=== PATIENT | male | born 1940 | race Caucasian/White ===

== ENCOUNTER 2017-01-29 08:44 | Inpatient (IN) | payer MEDICARE, MEDICAID ==
[~2017-01-29 08:44] MED LIST: ADULT LOW DOSE81 M1 PO; ALLOPURINOL100 MG; AMOX-CLAV 500-1 EACH; ATORVASTATIN CA10 M1 PO; BAYER CHEWABLE81 M2 PO; CALCIUM CARBON650 MG; CARDIZEM CD180 M1 PO; CEPHALEXIN500 M1 PO; CIPRO500 M2 PO; CIPRO500 MG/51 PO; CITRATE OF MAG300 M1 PO; CLINDAMYCIN HC300 M2 PO; CLOPIDOGREL75 M1 PO; COUMADIN10 MG; COUMADIN2.5 M1 PO; COUMADIN3 M1 PO; COUMADIN5 M2 PO; COUMADIN7.5 M1 PO; CULTURELLE1 EAC1 PO; CULTURELLE1 EAC2 PO; DOCUSATE; FERROUS SULFAT325 MG PO; FLOMAX0.4 M1 PO; FUROSEMIDE20 M1 PO; GLUCAGEN1 MG/1 ML IM; HYDROCHLOROTHIA25 M1 PO; HYDROCODON-ACE1 EA17 PO; IRON325 M3 PO; K-TAB ER10 MEQ PO; K-TAB ER20 ME1 PO; KEFLEX250 M2 PO; LASIX40 M1 PO; LIDOCAINE5 GM TOP; LIPITOR10 MG; LORTAB 5-325 M1 EAC1 PO; LOVENOX150 MG/1 M SC; MAGNESIUM OXID400 M1 PO; MERREM500 MG IV; METOLAZONE5 M1 PO; METOPROLOL SUC100 M1 PO; MILK OF MAGNESIA PO; MIRALAX17 G2 PO; MYCOPHENOLIC A360 M1 PO; NEURONTIN100 M1 PO; NORCO 5-325 TA1 EACH PO; NORVASC5 M2 PO; NOVOLOG100 UNITS/ SC; OMEPRAZOLE20 M3 PO; OXYCODONE HCL5 M1 PO; POTASSIUM CHLO10 ME1 PO; POTASSIUM CHLO20 ME3 PO; PROGRAF0.5 M1 PO; PROGRAF1 M1 PO; RAPAMUNE1 M1 PO; ROCALTROL0.25 MC1 PO; ROCALTROL0.5 MC2 PO; SANTYL30 G1 TD; SENEXON-S TABL1 EAC1 PO; SENNA8.6 M2 PO; SILVADENE20 G1 TD; SILVADENE20 G1 TOP; SIROLIMUS PO; SIROLIMUS0.5 MG PO; SULFAMYLON60 GM TOP; VANCO 1.751.75 GM/25 IV; VANCOMYCIN750 MG/250 IV; VENELEX OINTMEN60 GM TP; ZYLOPRIM100 M1 PO
[2017-01-29 16:34] LABS: BASO % 0.3 % (0-2); EOS % 1.7 % (0-7); EOSINOPHIL ABSOLUTE COUNT 0.2 tho/cmm (0.0-0.7); HCT-HEMATOCRIT 32.6 % (36.0-53.5); HGB-HEMOGLOBIN 10.2 gm/dl (13.5-17.0); IMMATURE GRANULOCYTES ABSOLUTE 0.01 tho/cmm (0-0.03); IMMATURE GRANULOCYTES PERCENT 0.1 % (0-0.3); LYMPH % 10.1 % (20-45); LYMPH ABSOLUTE COUNT 0.9 tho/cmm (0.8-4.5); MCH (MEAN CORPUSCULAR HGB) 22.9 pg (28.0-32.0); MCHC MEAN CORPUSCULAR HGB CONC 31.3 % (32.0-36.0); MCV (MEAN CELL VOLUME) 73.3 fl (82.0-96.0); MEAN PLATELET VOLUME 8.6 cmc (9.4-12.4); MONO % 3.4 % (0-12); MONOCYTE ABSOLUTE COUNT 0.3 tho/cmm (0.0-1.2); NEUTROPHIL ABSOLUTE COUNT 7.3 tho/cmm (1.6-8.0); NEUTROPHIL-AUTOMATED 7.3 tho/cmm (1.6-8.0); NEUTROPHILS % 84.4 % (40-80); PLATELET COUNT 344 tho/cmm (150-450); RED BLOOD COUNT 4.45 mil/cmm (4.40-5.70); RED CELL DISTRIBUTION WIDTH 18.3 % (12.4-16.4); WHITE BLOOD COUNT 8.7 tho/cmm (4.0-10.0)
[2017-01-29 16:35] LABS: INR 1.7 INR (0.9-1.1); PROTHROMBIN TIME 20.3 SECONDS (9.0-13.6)
[2017-01-29 16:47] LABS: ALB/GLOB RATIO 0.7 (0.8-2.0); ALBUMIN 3.1 g/dl (3.5-5.0); ALKALINE PHOSPHATASE 69 U/L (33-138); ALT/SGPT 14 U/L (12-78); ANION GAP 14 mmol/L (0-20); AST/SGOT 14 U/L (10-40); BILIRUBIN,TOTAL 0.4 mg/dl (0.0-1.5); BLOOD UREA NITROGEN 41 mg/dl (6-24); CALCIUM 8.2 mg/dl (8.5-10.5); CARBON DIOXIDE-VENOUS 28 mmol/L (22-32); CHLORIDE 102 mmol/l (96-110); CREATININE 1.35 mg/dl (0.60-1.30); GLUCOSE 114 mg/dL (70-110); POTASSIUM 4.8 mmol/L (3.7-5.1); PREALBUMIN 14.4 mg/dl (20.0-40.0); SODIUM 139 mmol/L (135-145); eGFR VALUE FOR BLACK 58 mL/Min
[2017-01-29] MEDS ORDERED: BISCOLAX10 MG PR (16:48)
[2017-01-29] MEDS ORDERED: ENEMA133 M4 PR (16:49)
[2017-01-30 06:11] LABS: BASO % 0.3 % (0-2); EOS % 1.1 % (0-7); EOSINOPHIL ABSOLUTE COUNT 0.1 tho/cmm (0.0-0.7); HCT-HEMATOCRIT 30.5 % (36.0-53.5); HGB-HEMOGLOBIN 9.4 gm/dl (13.5-17.0); IMMATURE GRANULOCYTES ABSOLUTE 0.02 tho/cmm (0-0.03); IMMATURE GRANULOCYTES PERCENT 0.3 % (0-0.3); LYMPH % 10.5 % (20-45); LYMPH ABSOLUTE COUNT 0.8 tho/cmm (0.8-4.5); MCH (MEAN CORPUSCULAR HGB) 22.5 pg (28.0-32.0); MCHC MEAN CORPUSCULAR HGB CONC 30.8 % (32.0-36.0); MCV (MEAN CELL VOLUME) 73.1 fl (82.0-96.0); MEAN PLATELET VOLUME 8.8 cmc (9.4-12.4); MONO % 6.8 % (0-12); MONOCYTE ABSOLUTE COUNT 0.5 tho/cmm (0.0-1.2); NEUTROPHIL ABSOLUTE COUNT 6.5 tho/cmm (1.6-8.0); NEUTROPHIL-AUTOMATED 6.5 tho/cmm (1.6-8.0); PLATELET COUNT 350 tho/cmm (150-450); RED BLOOD COUNT 4.17 mil/cmm (4.40-5.70); RED CELL DISTRIBUTION WIDTH 18.3 % (12.4-16.4)
[2017-01-30 06:22] LABS: ANION GAP 14 mmol/L (0-20); BLOOD UREA NITROGEN 38 mg/dl (6-24); CALCIUM 7.9 mg/dl (8.5-10.5); CARBON DIOXIDE-VENOUS 26 mmol/L (22-32); CHLORIDE 104 mmol/l (96-110); CREATININE 1.34 mg/dl (0.60-1.30); GLUCOSE 103 mg/dL (70-110); POTASSIUM 4.7 mmol/L (3.7-5.1); SODIUM 139 mmol/L (135-145); eGFR VALUE FOR BLACK 59 mL/Min
[2017-01-30 20:08] LABS: URINE PRT/CR RATIO 0.28 Ratio (0.0-0.20); URINE TOTAL PROTEIN-RANDOM 19.1 mg/dl (<11.8)
[2017-01-31 06:21] LABS: BASO % 0.5 % (0-2); EOS % 2.6 % (0-7); EOSINOPHIL ABSOLUTE COUNT 0.2 tho/cmm (0.0-0.7); HCT-HEMATOCRIT 30.6 % (36.0-53.5); HGB-HEMOGLOBIN 9.3 gm/dl (13.5-17.0); IMMATURE GRANULOCYTES ABSOLUTE 0.01 tho/cmm (0-0.03); IMMATURE GRANULOCYTES PERCENT 0.1 % (0-0.3); LYMPH % 11.3 % (20-45); LYMPH ABSOLUTE COUNT 0.9 tho/cmm (0.8-4.5); MCH (MEAN CORPUSCULAR HGB) 22.2 pg (28.0-32.0); MCHC MEAN CORPUSCULAR HGB CONC 30.4 % (32.0-36.0); MEAN PLATELET VOLUME 8.6 cmc (9.4-12.4); MONO % 7.1 % (0-12); MONOCYTE ABSOLUTE COUNT 0.6 tho/cmm (0.0-1.2); NEUTROPHIL ABSOLUTE COUNT 6.5 tho/cmm (1.6-8.0); NEUTROPHIL-AUTOMATED 6.5 tho/cmm (1.6-8.0); NEUTROPHILS % 78.4 % (40-80); PLATELET COUNT 332 tho/cmm (150-450); RED BLOOD COUNT 4.19 mil/cmm (4.40-5.70); RED CELL DISTRIBUTION WIDTH 18.2 % (12.4-16.4); WHITE BLOOD COUNT 8.3 tho/cmm (4.0-10.0)
[2017-01-31 06:22] LABS: INR 1.8 INR (0.9-1.1); PROTHROMBIN TIME 20.9 SECONDS (9.0-13.6)
[2017-01-31 06:33] LABS: ANION GAP 12 mmol/L (0-20); BLOOD UREA NITROGEN 38 mg/dl (6-24); CALCIUM 7.9 mg/dl (8.5-10.5); CARBON DIOXIDE-VENOUS 27 mmol/L (22-32); CHLORIDE 104 mmol/l (96-110); CREATININE 1.61 mg/dl (0.60-1.30); GLUCOSE 106 mg/dL (70-110); SODIUM 140 mmol/L (135-145); eGFR VALUE FOR BLACK 47 mL/Min
[2017-01-31 06:39] LABS: POTASSIUM 3.4 mmol/L (3.7-5.1)
[2017-02-01 04:36] LABS: BASO % 0.5 % (0-2); EOS % 2.2 % (0-7); EOSINOPHIL ABSOLUTE COUNT 0.2 tho/cmm (0.0-0.7); HCT-HEMATOCRIT 30.6 % (36.0-53.5); HGB-HEMOGLOBIN 9.4 gm/dl (13.5-17.0); IMMATURE GRANULOCYTES ABSOLUTE 0.02 tho/cmm (0-0.03); IMMATURE GRANULOCYTES PERCENT 0.3 % (0-0.3); LYMPH ABSOLUTE COUNT 0.8 tho/cmm (0.8-4.5); MCH (MEAN CORPUSCULAR HGB) 22.4 pg (28.0-32.0); MCHC MEAN CORPUSCULAR HGB CONC 30.7 % (32.0-36.0); MEAN PLATELET VOLUME 8.4 cmc (9.4-12.4); MONO % 4.7 % (0-12); MONOCYTE ABSOLUTE COUNT 0.4 tho/cmm (0.0-1.2); NEUTROPHIL ABSOLUTE COUNT 6.3 tho/cmm (1.6-8.0); NEUTROPHIL-AUTOMATED 6.3 tho/cmm (1.6-8.0); NEUTROPHILS % 82.3 % (40-80); PLATELET COUNT 325 tho/cmm (150-450); RED BLOOD COUNT 4.19 mil/cmm (4.40-5.70); RED CELL DISTRIBUTION WIDTH 18.2 % (12.4-16.4); WHITE BLOOD COUNT 7.6 tho/cmm (4.0-10.0)
[2017-02-01 04:40] LABS: INR 1.8 INR (0.9-1.1); PROTHROMBIN TIME 21.2 SECONDS (9.0-13.6)
[2017-02-01 04:49] LABS: ALBUMIN 3.1 g/dl (3.5-5.0); ANION GAP 12 mmol/L (0-20); BLOOD UREA NITROGEN 38 mg/dl (6-24); CALCIUM 7.9 mg/dl (8.5-10.5); CARBON DIOXIDE-VENOUS 31 mmol/L (22-32); CHLORIDE 103 mmol/l (96-110); CREATININE 1.71 mg/dl (0.60-1.30); GLUCOSE 109 mg/dL (70-110); PHOSPHOROUS 5.1 mg/dl (2.5-4.9); SODIUM 143 mmol/L (135-145); eGFR VALUE FOR BLACK 44 mL/Min
[2017-02-01 04:56] LABS: POTASSIUM 2.7 mmol/L (3.7-5.1)
[2017-02-01 10:46] LABS: ANION GAP 12 mmol/L (0-20); BLOOD UREA NITROGEN 37 mg/dl (6-24); CARBON DIOXIDE-VENOUS 32 mmol/L (22-32); CHLORIDE 102 mmol/l (96-110); CREATININE 1.79 mg/dl (0.60-1.30); GLUCOSE 96 mg/dL (70-110); SODIUM 143 mmol/L (135-145); eGFR VALUE FOR BLACK 41 mL/Min
[2017-02-01 10:49] LABS: POTASSIUM 2.9 mmol/L (3.7-5.1)
[2017-02-01 13:51] LABS: BLOOD UREA NITROGEN 38 mg/dl (6-24); CALCIUM 8.3 mg/dl (8.5-10.5); CARBON DIOXIDE-VENOUS 32 mmol/L (22-32); CHLORIDE 100 mmol/l (96-110); SODIUM 142 mmol/L (135-145); eGFR VALUE FOR BLACK 41 mL/Min
[2017-02-01 13:57] LABS: ANION GAP 13 mmol/L (0-20); GLUCOSE 145 mg/dL (70-110)
[2017-02-01 13:58] LABS: POTASSIUM 2.8 mmol/L (3.7-5.1)
[2017-02-01 17:17] LABS: ANION GAP 14 mmol/L (0-20); BLOOD UREA NITROGEN 37 mg/dl (6-24); CARBON DIOXIDE-VENOUS 30 mmol/L (22-32); CHLORIDE 101 mmol/l (96-110); CREATININE 1.69 mg/dl (0.60-1.30); GLUCOSE 134 mg/dL (70-110); SODIUM 142 mmol/L (135-145); eGFR VALUE FOR BLACK 44 mL/Min
[2017-02-01 17:18] LABS: POTASSIUM 2.9 mmol/L (3.7-5.1)
[2017-02-02 02:24] LABS: INR 1.6 INR (0.9-1.1); PROTHROMBIN TIME 18.5 SECONDS (9.0-13.6)
[2017-02-02 02:25] LABS: BASO % 0.3 % (0-2); EOS % 1.9 % (0-7); EOSINOPHIL ABSOLUTE COUNT 0.1 tho/cmm (0.0-0.7); HGB-HEMOGLOBIN 8.7 gm/dl (13.5-17.0); IMMATURE GRANULOCYTES ABSOLUTE 0.01 tho/cmm (0-0.03); IMMATURE GRANULOCYTES PERCENT 0.1 % (0-0.3); LYMPH % 11.4 % (20-45); LYMPH ABSOLUTE COUNT 0.8 tho/cmm (0.8-4.5); MCH (MEAN CORPUSCULAR HGB) 22.4 pg (28.0-32.0); MCHC MEAN CORPUSCULAR HGB CONC 31.1 % (32.0-36.0); MEAN PLATELET VOLUME 8.4 cmc (9.4-12.4); MONO % 7.2 % (0-12); MONOCYTE ABSOLUTE COUNT 0.5 tho/cmm (0.0-1.2); NEUTROPHIL ABSOLUTE COUNT 5.5 tho/cmm (1.6-8.0); NEUTROPHIL-AUTOMATED 5.5 tho/cmm (1.6-8.0); NEUTROPHILS % 79.1 % (40-80); PLATELET COUNT 309 tho/cmm (150-450); RED BLOOD COUNT 3.89 mil/cmm (4.40-5.70); RED CELL DISTRIBUTION WIDTH 18.1 % (12.4-16.4); WHITE BLOOD COUNT 6.9 tho/cmm (4.0-10.0)
[2017-02-02 02:31] LABS: ALBUMIN 3.3 g/dl (3.5-5.0); ANION GAP 14 mmol/L (0-20); BLOOD UREA NITROGEN 36 mg/dl (6-24); CALCIUM 7.7 mg/dl (8.5-10.5); CARBON DIOXIDE-VENOUS 29 mmol/L (22-32); CHLORIDE 104 mmol/l (96-110); CREATININE 1.73 mg/dl (0.60-1.30); GLUCOSE 113 mg/dL (70-110); PHOSPHOROUS 4.3 mg/dl (2.5-4.9); POTASSIUM 3.2 mmol/L (3.7-5.1); SODIUM 144 mmol/L (135-145); eGFR VALUE FOR BLACK 43 mL/Min
[2017-02-03 05:24] LABS: BASO % 0.5 % (0-2); EOS % 1.3 % (0-7); EOSINOPHIL ABSOLUTE COUNT 0.1 tho/cmm (0.0-0.7); HCT-HEMATOCRIT 28.2 % (36.0-53.5); HGB-HEMOGLOBIN 8.4 gm/dl (13.5-17.0); IMMATURE GRANULOCYTES ABSOLUTE 0.01 tho/cmm (0-0.03); IMMATURE GRANULOCYTES PERCENT 0.1 % (0-0.3); LYMPH % 9.5 % (20-45); LYMPH ABSOLUTE COUNT 0.7 tho/cmm (0.8-4.5); MCH (MEAN CORPUSCULAR HGB) 21.9 pg (28.0-32.0); MCHC MEAN CORPUSCULAR HGB CONC 29.8 % (32.0-36.0); MCV (MEAN CELL VOLUME) 73.6 fl (82.0-96.0); MEAN PLATELET VOLUME 7.9 cmc (9.4-12.4); MONO % 4.5 % (0-12); MONOCYTE ABSOLUTE COUNT 0.4 tho/cmm (0.0-1.2); NEUTROPHIL ABSOLUTE COUNT 6.6 tho/cmm (1.6-8.0); NEUTROPHIL-AUTOMATED 6.6 tho/cmm (1.6-8.0); NEUTROPHILS % 84.1 % (40-80); PLATELET COUNT 285 tho/cmm (150-450); RED BLOOD COUNT 3.83 mil/cmm (4.40-5.70); RED CELL DISTRIBUTION WIDTH 18.3 % (12.4-16.4); WHITE BLOOD COUNT 7.8 tho/cmm (4.0-10.0)
[2017-02-03 05:30] LABS: INR 1.6 INR (0.9-1.1); PROTHROMBIN TIME 19.4 SECONDS (9.0-13.6)
[2017-02-03 05:37] LABS: ALBUMIN 3.2 g/dl (3.5-5.0); ANION GAP 16 mmol/L (0-20); BLOOD UREA NITROGEN 33 mg/dl (6-24); CALCIUM 7.6 mg/dl (8.5-10.5); CARBON DIOXIDE-VENOUS 29 mmol/L (22-32); CHLORIDE 101 mmol/l (96-110); CREATININE 1.67 mg/dl (0.60-1.30); GLUCOSE 164 mg/dL (70-110); MAGNESIUM 1.8 mg/dl (1.8-2.6); PHOSPHOROUS 4.4 mg/dl (2.5-4.9); POTASSIUM 3.4 mmol/L (3.7-5.1); SODIUM 143 mmol/L (135-145); eGFR VALUE FOR BLACK 45 mL/Min
[2017-02-04 05:32] LABS: BASO % 0.2 % (0-2); EOS % 0.7 % (0-7); EOSINOPHIL ABSOLUTE COUNT 0.1 tho/cmm (0.0-0.7); HCT-HEMATOCRIT 27.7 % (36.0-53.5); HGB-HEMOGLOBIN 8.3 gm/dl (13.5-17.0); IMMATURE GRANULOCYTES ABSOLUTE 0.01 tho/cmm (0-0.03); IMMATURE GRANULOCYTES PERCENT 0.1 % (0-0.3); LYMPH % 8.7 % (20-45); LYMPH ABSOLUTE COUNT 0.9 tho/cmm (0.8-4.5); MCV (MEAN CELL VOLUME) 73.3 fl (82.0-96.0); MEAN PLATELET VOLUME 8.5 cmc (9.4-12.4); MONO % 4.5 % (0-12); MONOCYTE ABSOLUTE COUNT 0.5 tho/cmm (0.0-1.2); NEUTROPHIL ABSOLUTE COUNT 8.6 tho/cmm (1.6-8.0); NEUTROPHIL-AUTOMATED 8.6 tho/cmm (1.6-8.0); NEUTROPHILS % 85.8 % (40-80); PLATELET COUNT 341 tho/cmm (150-450); RED BLOOD COUNT 3.78 mil/cmm (4.40-5.70); RED CELL DISTRIBUTION WIDTH 18.4 % (12.4-16.4)
[2017-02-04 05:37] LABS: INR 1.6 INR (0.9-1.1); PROTHROMBIN TIME 19.4 SECONDS (9.0-13.6)
[2017-02-04 05:46] LABS: ANION GAP 12 mmol/L (0-20); BLOOD UREA NITROGEN 39 mg/dl (6-24); CALCIUM 7.6 mg/dl (8.5-10.5); CARBON DIOXIDE-VENOUS 30 mmol/L (22-32); CHLORIDE 106 mmol/l (96-110); CREATININE 1.56 mg/dl (0.60-1.30); GLUCOSE 127 mg/dL (70-110); POTASSIUM 3.8 mmol/L (3.7-5.1); SODIUM 144 mmol/L (135-145); eGFR VALUE FOR BLACK 49 mL/Min
[2017-02-05 05:58] LABS: ALBUMIN 2.8 g/dl (3.5-5.0); ANION GAP 12 mmol/L (0-20); BLOOD UREA NITROGEN 34 mg/dl (6-24); CALCIUM 7.5 mg/dl (8.5-10.5); CARBON DIOXIDE-VENOUS 29 mmol/L (22-32); CHLORIDE 104 mmol/l (96-110); CREATININE 1.54 mg/dl (0.60-1.30); GLUCOSE 116 mg/dL (70-110); PHOSPHOROUS 3.6 mg/dl (2.5-4.9); POTASSIUM 3.4 mmol/L (3.7-5.1); SODIUM 142 mmol/L (135-145); eGFR VALUE FOR BLACK 50 mL/Min
[2017-02-05 06:02] LABS: TSH-THYROID STIMULATING HORM. 3.03 uIU/ml (0.40-3.80)
[2017-02-05 06:58] LABS: BASO % 0.4 % (0-2); EOSINOPHIL ABSOLUTE COUNT 0.2 tho/cmm (0.0-0.7); HCT-HEMATOCRIT 26.8 % (36.0-53.5); LYMPH % 5.7 % (20-45); LYMPH ABSOLUTE COUNT 0.6 tho/cmm (0.8-4.5); MCH (MEAN CORPUSCULAR HGB) 22.4 pg (28.0-32.0); MCHC MEAN CORPUSCULAR HGB CONC 29.9 % (32.0-36.0); MCV (MEAN CELL VOLUME) 75.1 fl (82.0-96.0); MEAN PLATELET VOLUME 9.2 cmc (9.4-12.4); MONO % 7.7 % (0-12); MONOCYTE ABSOLUTE COUNT 0.7 tho/cmm (0.0-1.2); NEUTROPHIL ABSOLUTE COUNT 8.1 tho/cmm (1.6-8.0); NEUTROPHIL-AUTOMATED 8.1 tho/cmm (1.6-8.0); NEUTROPHILS % 84.2 % (40-80); PLATELET COUNT 387 tho/cmm (150-450); RED BLOOD COUNT 3.57 mil/cmm (4.40-5.70); RED CELL DISTRIBUTION WIDTH 18.5 % (12.4-16.4); WHITE BLOOD COUNT 9.6 tho/cmm (4.0-10.0)
[2017-02-05 07:39] LABS: INR 2.1 INR (0.9-1.1); PROTHROMBIN TIME 24.4 SECONDS (9.0-13.6)
[2017-02-05 19:35] LABS: PROTHROMBIN TIME 23.4 SECONDS (9.0-13.6)
[2017-02-06 05:35] LABS: BASO % 0.4 % (0-2); EOS % 2.9 % (0-7); EOSINOPHIL ABSOLUTE COUNT 0.3 tho/cmm (0.0-0.7); HCT-HEMATOCRIT 25.7 % (36.0-53.5); HGB-HEMOGLOBIN 7.8 gm/dl (13.5-17.0); IMMATURE GRANULOCYTES ABSOLUTE 0.02 tho/cmm (0-0.03); IMMATURE GRANULOCYTES PERCENT 0.2 % (0-0.3); LYMPH % 6.6 % (20-45); LYMPH ABSOLUTE COUNT 0.6 tho/cmm (0.8-4.5); MCH (MEAN CORPUSCULAR HGB) 22.2 pg (28.0-32.0); MCHC MEAN CORPUSCULAR HGB CONC 30.4 % (32.0-36.0); MEAN PLATELET VOLUME 8.5 cmc (9.4-12.4); MONO % 9.3 % (0-12); MONOCYTE ABSOLUTE COUNT 0.8 tho/cmm (0.0-1.2); NEUTROPHIL ABSOLUTE COUNT 6.9 tho/cmm (1.6-8.0); NEUTROPHIL-AUTOMATED 6.9 tho/cmm (1.6-8.0); NEUTROPHILS % 80.6 % (40-80); PLATELET COUNT 344 tho/cmm (150-450); RED BLOOD COUNT 3.52 mil/cmm (4.40-5.70); RED CELL DISTRIBUTION WIDTH 18.5 % (12.4-16.4); WHITE BLOOD COUNT 8.5 tho/cmm (4.0-10.0)
[2017-02-06 05:37] LABS: INR 1.8 INR (0.9-1.1); PROTHROMBIN TIME 21.8 SECONDS (9.0-13.6)
[2017-02-06 05:53] LABS: CHLORIDE 106 mmol/l (96-110); POTASSIUM 3.4 mmol/L (3.7-5.1); SODIUM 145 mmol/L (135-145)
[2017-02-06 06:02] LABS: IRON 17 ug/dl (49-181); IRON BINDING CAPACITY 168 ug/dl (250-450)
[2017-02-06 07:14] LABS: ANION GAP 15 mmol/L (0-20); BLOOD UREA NITROGEN 29 mg/dl (6-24); CALCIUM 7.8 mg/dl (8.5-10.5); CARBON DIOXIDE-VENOUS 27 mmol/L (22-32); CREATININE 1.43 mg/dl (0.60-1.30); GLUCOSE 116 mg/dL (70-110); eGFR VALUE FOR BLACK 54 mL/Min
[2017-02-06 14:29] LABS: BASO % 0.3 % (0-2); EOS % 1.9 % (0-7); EOSINOPHIL ABSOLUTE COUNT 0.2 tho/cmm (0.0-0.7); HCT-HEMATOCRIT 25.3 % (36.0-53.5); HGB-HEMOGLOBIN 7.8 gm/dl (13.5-17.0); IMMATURE GRANULOCYTES ABSOLUTE 0.02 tho/cmm (0-0.03); IMMATURE GRANULOCYTES PERCENT 0.2 % (0-0.3); LYMPH % 5.3 % (20-45); LYMPH ABSOLUTE COUNT 0.5 tho/cmm (0.8-4.5); MCH (MEAN CORPUSCULAR HGB) 22.9 pg (28.0-32.0); MCHC MEAN CORPUSCULAR HGB CONC 30.8 % (32.0-36.0); MCV (MEAN CELL VOLUME) 74.4 fl (82.0-96.0); MONO % 8.3 % (0-12); MONOCYTE ABSOLUTE COUNT 0.8 tho/cmm (0.0-1.2); NEUTROPHIL ABSOLUTE COUNT 7.6 tho/cmm (1.6-8.0); NEUTROPHIL-AUTOMATED 7.6 tho/cmm (1.6-8.0); PLATELET COUNT 300 tho/cmm (150-450); RED CELL DISTRIBUTION WIDTH 18.8 % (12.4-16.4); WHITE BLOOD COUNT 9.1 tho/cmm (4.0-10.0)
[2017-02-07 05:34] LABS: BASO % 0.3 % (0-2); EOS % 0.7 % (0-7); EOSINOPHIL ABSOLUTE COUNT 0.1 tho/cmm (0.0-0.7); HGB-HEMOGLOBIN 7.9 gm/dl (13.5-17.0); IMMATURE GRANULOCYTES ABSOLUTE 0.02 tho/cmm (0-0.03); IMMATURE GRANULOCYTES PERCENT 0.2 % (0-0.3); LYMPH % 6.5 % (20-45); LYMPH ABSOLUTE COUNT 0.8 tho/cmm (0.8-4.5); MCH (MEAN CORPUSCULAR HGB) 22.8 pg (28.0-32.0); MCHC MEAN CORPUSCULAR HGB CONC 30.4 % (32.0-36.0); MCV (MEAN CELL VOLUME) 75.1 fl (82.0-96.0); MEAN PLATELET VOLUME 8.1 cmc (9.4-12.4); MONO % 4.8 % (0-12); MONOCYTE ABSOLUTE COUNT 0.6 tho/cmm (0.0-1.2); NEUTROPHIL ABSOLUTE COUNT 10.2 tho/cmm (1.6-8.0); NEUTROPHIL-AUTOMATED 10.2 tho/cmm (1.6-8.0); NEUTROPHILS % 87.5 % (40-80); PLATELET COUNT 325 tho/cmm (150-450); RED BLOOD COUNT 3.46 mil/cmm (4.40-5.70); WHITE BLOOD COUNT 11.6 tho/cmm (4.0-10.0)
[2017-02-07 05:58] LABS: INR 1.3 INR (0.9-1.1)
[2017-02-07 06:17] LABS: ANION GAP 13 mmol/L (0-20); BLOOD UREA NITROGEN 23 mg/dl (6-24); CALCIUM 7.3 mg/dl (8.5-10.5); CARBON DIOXIDE-VENOUS 28 mmol/L (22-32); CHLORIDE 103 mmol/l (96-110); CREATININE 1.34 mg/dl (0.60-1.30); GLUCOSE 141 mg/dL (70-110); POTASSIUM 3.2 mmol/L (3.7-5.1); SODIUM 141 mmol/L (135-145); eGFR VALUE FOR BLACK 59 mL/Min
[2017-02-07 06:20] LABS: PROTHROMBIN TIME 14.8 SECONDS (9.0-13.6)
[2017-02-08 05:51] LABS: BASO % 0.2 % (0-2); EOSINOPHIL ABSOLUTE COUNT 0.1 tho/cmm (0.0-0.7); HCT-HEMATOCRIT 24.4 % (36.0-53.5); HGB-HEMOGLOBIN 7.3 gm/dl (13.5-17.0); IMMATURE GRANULOCYTES ABSOLUTE 0.01 tho/cmm (0-0.03); IMMATURE GRANULOCYTES PERCENT 0.1 % (0-0.3); LYMPH % 7.8 % (20-45); LYMPH ABSOLUTE COUNT 0.8 tho/cmm (0.8-4.5); MCH (MEAN CORPUSCULAR HGB) 22.7 pg (28.0-32.0); MCHC MEAN CORPUSCULAR HGB CONC 29.9 % (32.0-36.0); MEAN PLATELET VOLUME 8.4 cmc (9.4-12.4); MONO % 6.4 % (0-12); MONOCYTE ABSOLUTE COUNT 0.7 tho/cmm (0.0-1.2); NEUTROPHIL ABSOLUTE COUNT 8.8 tho/cmm (1.6-8.0); NEUTROPHIL-AUTOMATED 8.8 tho/cmm (1.6-8.0); NEUTROPHILS % 84.5 % (40-80); PLATELET COUNT 331 tho/cmm (150-450); RED BLOOD COUNT 3.21 mil/cmm (4.40-5.70); RED CELL DISTRIBUTION WIDTH 19.9 % (12.4-16.4); WHITE BLOOD COUNT 10.4 tho/cmm (4.0-10.0)
[2017-02-08 05:52] LABS: INR 1.2 INR (0.9-1.1); PROTHROMBIN TIME 14.4 SECONDS (9.0-13.6)
[2017-02-08 06:00] LABS: ALBUMIN 2.5 g/dl (3.5-5.0); ANION GAP 14 mmol/L (0-20); BLOOD UREA NITROGEN 22 mg/dl (6-24); CALCIUM 7.4 mg/dl (8.5-10.5); CARBON DIOXIDE-VENOUS 30 mmol/L (22-32); CHLORIDE 105 mmol/l (96-110); CREATININE 1.25 mg/dl (0.60-1.30); GLUCOSE 127 mg/dL (70-110); MAGNESIUM 1.9 mg/dl (1.8-2.6); PHOSPHOROUS 3.5 mg/dl (2.5-4.9); SODIUM 146 mmol/L (135-145); eGFR VALUE FOR BLACK 64 mL/Min
[2017-02-08 16:20] LABS: ANION GAP 13 mmol/L (0-20); BLOOD UREA NITROGEN 23 mg/dl (6-24); CALCIUM 7.7 mg/dl (8.5-10.5); CARBON DIOXIDE-VENOUS 27 mmol/L (22-32); CHLORIDE 107 mmol/l (96-110); CREATININE 1.36 mg/dl (0.60-1.30); GLUCOSE 119 mg/dL (70-110); SODIUM 143 mmol/L (135-145); eGFR VALUE FOR BLACK 58 mL/Min
[2017-02-08 16:29] LABS: POTASSIUM 4.2 mmol/L (3.7-5.1)
[2017-02-09 05:58] LABS: INR 1.3 INR (0.9-1.1); PROTHROMBIN TIME 14.8 SECONDS (9.0-13.6)
[2017-02-09 06:03] LABS: BASO % 0.2 % (0-2); EOS % 1.1 % (0-7); EOSINOPHIL ABSOLUTE COUNT 0.1 tho/cmm (0.0-0.7); HCT-HEMATOCRIT 24.3 % (36.0-53.5); HGB-HEMOGLOBIN 7.4 gm/dl (13.5-17.0); IMMATURE GRANULOCYTES ABSOLUTE 0.02 tho/cmm (0-0.03); IMMATURE GRANULOCYTES PERCENT 0.2 % (0-0.3); LYMPH % 4.3 % (20-45); LYMPH ABSOLUTE COUNT 0.4 tho/cmm (0.8-4.5); MCH (MEAN CORPUSCULAR HGB) 23.3 pg (28.0-32.0); MCHC MEAN CORPUSCULAR HGB CONC 30.5 % (32.0-36.0); MCV (MEAN CELL VOLUME) 76.7 fl (82.0-96.0); MEAN PLATELET VOLUME 8.6 cmc (9.4-12.4); MONO % 11.5 % (0-12); MONOCYTE ABSOLUTE COUNT 1.2 tho/cmm (0.0-1.2); NEUTROPHIL ABSOLUTE COUNT 8.3 tho/cmm (1.6-8.0); NEUTROPHIL-AUTOMATED 8.3 tho/cmm (1.6-8.0); NEUTROPHILS % 82.7 % (40-80); PLATELET COUNT 369 tho/cmm (150-450); RED BLOOD COUNT 3.17 mil/cmm (4.40-5.70); RED CELL DISTRIBUTION WIDTH 20.6 % (12.4-16.4)
[2017-02-09 06:07] LABS: ALBUMIN 2.5 g/dl (3.5-5.0); ANION GAP 12 mmol/L (0-20); BLOOD UREA NITROGEN 23 mg/dl (6-24); CALCIUM 7.8 mg/dl (8.5-10.5); CARBON DIOXIDE-VENOUS 29 mmol/L (22-32); CHLORIDE 104 mmol/l (96-110); CREATININE 1.27 mg/dl (0.60-1.30); GLUCOSE 116 mg/dL (70-110); PHOSPHOROUS 3.4 mg/dl (2.5-4.9); POTASSIUM 3.8 mmol/L (3.7-5.1); SODIUM 141 mmol/L (135-145); eGFR VALUE FOR BLACK 63 mL/Min
== END 2017-02-09 13:36 | DRG 908 ==
LOC: WCC 08:44 → BURN 14:05
PROVIDERS: Family Medicine; Internal Medicine; Internal Medicine Nephrology; Physician Assistant; Surgery; ADMIT Surgery
PROC: 0Y6M0Z0 Detachment at Right Foot, Complete, Open Approach (ICD-10-PCS; principal; 2017-02-02)
PROC: 0Y3H0ZZ Control Bleeding in Right Lower Leg, Open Approach (ICD-10-PCS; 2017-02-02)
PROC: 0JCN0ZZ Extirpation of Matter from Right Lower Leg Subcutaneous Tissue and Fascia, Open Approach (ICD-10-PCS; 2017-02-02)
PROC: 0Y6H0Z1 Detachment at Right Lower Leg, High, Open Approach (ICD-10-PCS; 2017-02-06)
DX: T86.821 Skin graft (allograft) (autograft) failure (principal); Z94.0 Kidney transplant status; I47.2 Ventricular tachycardia; N17.9 Acute kidney failure, unspecified; E44.0 Moderate protein-calorie malnutrition; I42.9 Cardiomyopathy, unspecified; C78.6 Secondary malignant neoplasm of retroperitoneum and peritoneum; R18.8 Other ascites; C18.1 Malignant neoplasm of appendix; L76.32 Postprocedural hematoma of skin and subcutaneous tissue following other procedure; E11.22 Type 2 diabetes mellitus with diabetic chronic kidney disease; Z79.01 Long term (current) use of anticoagulants; I73.9 Peripheral vascular disease, unspecified; Z79.899 Other long term (current) drug therapy; Z89.431 Acquired absence of right foot; E78.5 Hyperlipidemia, unspecified; I48.2 Chronic atrial fibrillation; Z79.02 Long term (current) use of antithrombotics/antiplatelets; I49.3 Ventricular premature depolarization; K59.00 Constipation, unspecified; R11.2 Nausea with vomiting, unspecified; E87.6 Hypokalemia; I12.9 Hypertensive chronic kidney disease with stage 1 through stage 4 chronic kidney disease, or unspecified chronic kidney disease; D64.9 Anemia, unspecified; N18.3 Chronic kidney disease, stage 3 (moderate); Z51.5 Encounter for palliative care; Y83.8 Other surgical procedures as the cause of abnormal reaction of the patient, or of later complication, without mention of misadventure at the time of the procedure; F50.89 Other specified eating disorder; Z68.30 Body mass index [BMI] 30.0-30.9, adult
CPT/HCPCS: C9113; G0463; J0171; J1756; J1815; J1940; J2250; J2270; J2405; J2543; J2765; J3010; J3430; J3475; J3480; J7507; J7520; P9016; P9017; P9047